=== PATIENT | female | born 2000 | race Asian ===

== ENCOUNTER 2022-06-23 14:38 | Emergency (ER) | payer OTHER ==
[~2022-06-23] VITALS: Ht 160 cm; Wt 55.0 kg
[2022-06-23] MEDS ORDERED: IBUPROFEN 600MG TABLET PO ONE (16:15)
[2022-06-23 16:53] VITALS: BP 139/88
[2022-06-23] MEDS ORDERED: IBUP-2029 MT (16:55)
== END 2022-06-23 17:05 | disposition home or self-care (01) ==
LOC: ER 14:38
DX: M54.2 Cervicalgia (principal); R51.9 Headache, unspecified; V49.59XA Passenger injured in collision with other motor vehicles in traffic accident, initial encounter; Y93.89 Activity, other specified; Y92.89 Other specified places as the place of occurrence of the external cause; Y99.8 Other external cause status
CPT/HCPCS: 71045; 81025; 99284